=== PATIENT | female | born 2000 | race Two or more races ===

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

== ENCOUNTER 2018-05-18 22:55 | Emergency (ER) | payer OTHER ==
[2018-05-18 23:06] VITALS: BP 127/72
--- NOTE | 2018-05-18 23:20 | EDPHY ---
H & P Stated Complaint: SORE THROAT, WHITE POCKETS X4 DAYS, FRIENDS HAVE STREP Source: Patient Exam Limitations: No limitations - Personal History LMP (Females 10-55): 1-7 Days Ago Current Tetanus/Diphtheria Vaccine: Yes - Medical/Surgical History Hx Asthma: No Hx Chronic Respiratory Disease: No Hx Diabetes: No Hx Cardiac Disease: No Hx Renal Disease: No Hx Cirrhosis: No Hx Alcoholism: No Hx HIV/AIDS: No Hx Splenectomy or Spleen Trauma: No Other PMH: denies - Social History Smoking Status: Never smoked Time Seen by Provider: 05/18/18 23:18 HPI/ROS: HPI: This is a 17-year-old female who presents with Chief Complaint: SORE THROAT, WHITE POCKETS X4 DAYS, FRIENDS HAVE STREP Location: Throat Quality: Sore Duration: 4 days Signs and Symptoms: + subjective fever, no nausea, no vomiting, no diarrhea, no urinary symptoms, no chest pain, no shortness of breath, no wheezing, no cough, + sore throat, no neck stiffness, no joint pain, + swollen glands, no ear pain, no rash Timing: Acute, constant Severity: Moderate Context: Patient is student at [employer], presents with 4 day history of gradually worsening sore throat. She reports that she now has white pockets on both of her tonsils, swollen glands, no cough. She reports a subjective fever. She has been exposed to several friends at been diagnosed with strep throat. She reports that she is able to eat and drink does report decreased appetite. Modifying Factors: [id number] Tylenol cold symptoms with mild relief Comment: ROS: A comprehensive 10 system review of systems is otherwise negative aside from elements mentioned in the history of present illness. MEDICAL/SURGICAL/SOCIAL HISTORY: Medical history: Generally healthy. LMP 1-7 days ago. Takes oral control pills. Surgical history: Denies Social history: Student at [employer]. Denies alcohol, tobacco, drug use. Family history noncontributory. CONSTITUTIONAL: Nontoxic-appearing teenage white female, awake and alert, no obvious distress HEENT: Atraumatic and normocephalic, PERRL, EOMI. Wears glasses. Nares patent; no rhinorrhea; no nasal mucosal edema. Tympanic membranes clear. Tonsils 1+ with moderate erythema; uvula midline; Oropharynx clear, + white exudate and moist pink mucosa. Airway patent. + spotty cervical lymphadenopathy. No meningismus. Cardiovascular: Normal S1/S2, regular rate, regular rhythm, without murmur rub or gallop. PULMONARY/CHEST: Symmetrical and nontender. Clear to auscultation bilaterally. Good air movement. No accessory muscle usage. ABDOMEN: Soft, nondistended, nontender, no rebound, no guarding, no peritoneal signs, no masses or organomegaly. No CVAT. EXTREMITIES: 2/2 pulses, strength 5/5, no deformities, no clubbing, no cyanosis or edema. NEUROLOGICAL: no focal neuro deficits. GCS 15. SKIN: Warm and dry, no erythema. no rash. Good capillary refill. (Charito Cruz) Constitutional: Initial Vital Signs Temperature (C) 36.5 C 05/18/18 23:03 Heart Rate 80 05/18/18 23:03 Respiratory Rate 18 05/18/18 23:03 Blood Pressure 127/72 H 05/18/18 23:03 O2 Sat (%) 97 05/18/18 23:03 O2 Delivery Mode Room Air Allergies/Adverse Reactions: No Known Allergies Allergy (Unverified 08/03/17 02:22) Home Medications: Medication Instructions Recorded Amoxicillin Trihydrate [Amoxil] 500 mg PO TID 10 Days cap 05/18/18 Control Pill 05/18/18 Medical Decision Making ED Course/Re-evaluation: Vital signs reviewed and stable upon arrival. No systemic signs. Rapid strep taken Modified Centor Score= 3; it is recommended prophylactic antibiotics. 1. Age Range: 15-44 years 0 2. Exudate or swelling on tonsils: Yes 3. Tender/swollen anterior cervical lymph nodes: Yes 4. Temp greater than 30 degree C: No 5. Cough: Absent=1 Given Decadron 10 mg amoxicillin prepack No signs of tonsillar abscess/dehydration/meningitis This patient was seen under the supervision of my secondary supervising physician. I evaluated care for this patient independently. Discussed this patient with Dr. Grant. (Charito Cruz) PHYSICIAN DOCUMENTATION: The patient was evaluated and managed by the Physician Service Unit Operator. My co- signature indicates that I have reviewed this chart and I agree with the findings and plan of care as documented. I am the secondary supervising physician. (Daniella Grant) Differential Diagnosis: Differential diagnosis includes but is not limited to strep pharyngitis, tonsillar abscess, infectious mononucleosis, upper respiratory infection. (Charito Cruz) - Data Points Laboratory Results: 05/18/18 05/18/18 Unknown 23:15 Group A Strep Screen NEGATIVE (NEGATIVE) Group A Strep DNA Pending Medications Given: Discontinued Medications Amoxicillin (Amoxil Chewable 250 Mg Prepack#4) 1 btl TAKEHOME EDNOW ONE PRN Reason: Protocol Stop: 05/18/18 23:24 Last Admin: 05/18/18 23:32 Dose: 1 btl Dexamethasone (Decadron) 10 mg PO EDNOW ONE Stop: 05/18/18 23:24 Last Admin: 05/18/18 23:32 Dose: 10 mg Departure - Departure Disposition: Home, Routine, Self-Care Clinical Impression: Pharyngitis, Exposure to strep throat Condition: Good Instructions: Strep Throat (ED) Additional Instructions: Consume a minimum of 8-10 glasses of water or electrolyte fluid replacement drinks that include Gatorade, Powerade, Pedialyte. Eat a bland diet for the next 48 hours and then slowly advance as tolerated. Take amoxicillin 3 times a day times 10 days. Do not skip a dose. Complete all 10 days of antibiotics. Take Tylenol 650 mg every 4 hr and/or ibuprofen 600 mg every 8 hr as needed for pain, fever. Return to the ER immediately if you cannot swallow, have drooling, fevers, neck stiffness, cannot open your jaw, or any other symptoms that concern you. Referrals: [facility] [Other] - As per Instructions Stand Alone Forms: Work Excuse Prescriptions: Amoxicillin Trihydrate [Amoxil] 500 mg PO TID 10 Days cap
[2018-05-18] MEDS ORDERED: DEXAMETHASONE 4 MG TAB PO ONE (23:23)
[2018-05-18] MEDS ORDERED: AMOXICILLIN 250 MG PREPACK#4 BTL TAKEHOME ONE (23:23)
== END 2018-05-18 23:38 | disposition home or self-care (01) ==
DX: J02.9 Acute pharyngitis, unspecified (principal); Z20.818 Contact with and (suspected) exposure to other bacterial communicable diseases